=== PATIENT | male | born 1980 | race African-American/Black ===

== ENCOUNTER 2018-05-15 18:34 | Emergency (ER) | payer OTHER ==
--- NOTE | 2018-05-15 18:49 | PDOC ---
Rapid Medical Evaluation Chief Complaint: Revisit, Lab Variance Time Seen by Provider: 05/15/18 18:48 Medical Evaluation: Allergies Allergy/AdvReac Type Severity Reaction Status Date / Time No Known Allergies Allergy Verified 05/15/18 18:47 05/15/18 18:49 I have performed a brief in-person evaluation of this patient The patient presents with a chief complaint of: I want to get treated for trichomonas because my girlfriend has it. I have ordered the following Flagyl 2g PO and GC/CT The patient will proceed to the ED for further evaluation 05/15/18 18:51 Discharge Disposition - Diagnosis STD exposure - Referrals - Patient Instructions - Post Discharge Activity
[2018-05-15] MEDS ORDERED: metroNIDAZOLE 250 MG TABLET PO ONE (18:50)
[2018-05-15 18:51] VITALS: BP 154/105; PULSE 84; TEMP 98.7; BMI 32.4
[2018-05-15] MEDS ORDERED: AZITHROMYCIN 500 MG TABLET PO ONE (19:07)
[2018-05-15] MEDS ORDERED: metroNIDAZOLE 250 MG TABLET ONE (19:09)
[2018-05-15] MEDS ORDERED: cefTRIAXone SODIUM 1 GM VIAL ONE (19:09)
[2018-05-15] MEDS ORDERED: AZITHROMYCIN 500 MG TABLET ONE (19:09)
--- NOTE | 2018-05-15 19:11 | PDOC ---
History of Present Illness - General Chief Complaint: Revisit, Lab Variance Stated Complaint: FOLLOW UP Time Seen by Provider: 05/15/18 18:48 History Source: Patient Exam Limitations: No Limitations - History of Present Illness Initial Comments: Patient is a 37-year-old male who states that his girlfriend was notified that she was recently diagnosed with Trichomonas. Patient has a history of sexual transmitted diseases. He denies dysuria or penile discharge. Pain is 0-10. Denies aggravating or relieving factors. 05/15/18 19:07 Past History - Travel Traveled outside of the country in the last 30 days: No Close contact w/someone who was outside of country & ill: No - Past Medical History Allergies/Adverse Reactions: Allergies Allergy/AdvReac Type Severity Reaction Status Date / Time No Known Allergies Allergy Verified 05/15/18 18:47 COPD: No - Suicide/Smoking/Psychosocial Hx Smoking History: Current every day smoker Number of Cigarettes Smoked Daily: 1 Information on smoking cessation initiated: No Hx Alcohol Use: No Drug/Substance Use Hx: No Review of Systems - Review of Systems Able to Perform ROS?: Yes Constitutional: No: Chills, Fever All Other Systems: Reviewed and Negative *Physical Exam - Vital Signs Last Vital Signs Temp Pulse Resp BP Pulse Ox 98.7 F 84 16 154/105 H 99 05/15/18 18:47 05/15/18 18:47 05/15/18 18:47 05/15/18 18:47 05/15/18 18:47 - Physical Exam Comments: Constitutional: VS stated, pt appears in no apparent distress; sitting in chair. Skin: Warm and dry. Intact, no lesions or excoriations. Head: Normocephalic; atraumatic Eyes: conjunctiva pink without injection or discharge. Throat: Oropharynx with pink and moist mucosa. Lungs: Bilateral breath sounds clear upon auscultation. Heart: Regular rate and rhythm, Abdomen: Soft and non-tender. Musculoskeletal: Moves all extremities without difficulty. Neurologic: Awake, alert. Conversation fluent. Psych: Appropriate affect 05/15/18 19:09 Moderate Sedation - Procedure Monitoring Vital Signs: Procedure Monitoring Vital Signs Temperature 98.7 F 05/15/18 18:47 Pulse Rate 84 05/15/18 18:47 Respiratory Rate 16 05/15/18 18:47 Blood Pressure 154/105 H 05/15/18 18:47 O2 Sat by Pulse Oximetry (%) 99 05/15/18 18:47 Medical Decision Making - Medical Decision Making Pt was given Flagyl 2000 mg PO, Rocephin 250 mg IM and Azithromycin 1000 mg PO. He had no signs of anaphylaxis or allergic reaction. 05/15/18 19:10 *DC/Admit/Observation/Transfer Diagnosis at time of Disposition: STD exposure - Discharge Dispostion Disposition: HOME Condition at time of disposition: Good Decision to Admit order: No - Referrals - Patient Instructions Printed Discharge Instructions: How to Detect and Treat STDs - Post Discharge Activity
[2018-05-15 19:57] LABS: URINE APPEARANCE CLEAR; URINE BILIRUBIN NEGATIVE (<2.0 mg/dL); URINE COLOR STRAW; URINE GLUCOSE (UA) NEGATIVE (NEGATIVE); URINE KETONE NEGATIVE (NEGATIVE); URINE LEUK ESTERASE NEGATIVE (NEGATIVE); URINE NITRITE NEGATIVE (NEGATIVE); URINE PROTEIN NEGATIVE (NEGATIVE); URINE UROBILINOGEN NEGATIVE mg/dL (0.2-1.0)
[2018-05-15 20:08] LABS: EPI CELLS RARE /HPF (FEW); URINE MUCUS RARE
== END 2018-05-15 19:33 | disposition home or self-care (01) ==
LOC: JERFT 18:34
DX: Z20.2 Contact with and (suspected) exposure to infections with a predominantly sexual mode of transmission (principal)
CPT/HCPCS: 36415; 81003; 81015; 87086; 87491; 87591; 96372; 99281-25

== ENCOUNTER 2019-02-22 19:27 | Emergency (ER) | payer SELFPAY ==
[2019-02-22 19:52] VITALS: TEMP 98.9; BMI 29.0
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
[2019-02-22] MEDS ORDERED: ONDANSETRON 4 MG/2 ML VIAL IVPUSH ONE (20:43)
[2019-02-22] MEDS ORDERED: ONDANSETRON 4 MG/2 ML VIAL ONE (20:52)
[2019-02-22 20:53] LABS: BASO % 0.8 % (0-2.0); EOS % 0.7 % (0-4.5); HEMATOCRIT 39.9 % (35.4-49); LYMPH % 36.3 % (8-40); MCH 27.5 pg (25.7-33.7); MCHC 32.5 g/dl (32.0-35.9); MEAN CELL VOLUME 84.7 fl (80-96); MEAN PLT VOLUME 7.3 fl (7.5-11.1); MONO % 7.5 % (3.8-10.2); NEUT % 54.7 % (42.8-82.8); PLATELET COUNT 321 K/MM3 (134-434); RBC 4.71 M/mm3 (4.00-5.60); RDW 13.8 % (11.9-15.9); WHITE BLOOD COUNT 5.7 K/mm3 (4.0-10.0)
[2019-02-22 21:19] LABS: ALBUMIN 4.1 g/dl (3.4-5.0); BILIRUBIN,TOTAL 0.2 mg/dL (0.2-1); BLOOD UREA NITROGEN 15.2 mg/dL (7-18); CREATININE 1.3 mg/dL (0.55-1.3); POTASSIUM 4.2 mmol/L (3.5-5.1); TOT PROT 7.9 g/dl (6.4-8.2)
[2019-02-23] MEDS ORDERED: IBUPROFEN 400 MG TABLET (FP) PO ONE (00:04)
--- NOTE | 2019-02-23 00:04 | PDOC ---
*Physical Exam - Vital Signs Last Vital Signs Temp Pulse Resp BP Pulse Ox 98.9 F 96 H 18 163/100 96 02/22/19 19:47 02/22/19 19:47 02/22/19 19:47 02/22/19 19:47 02/22/19 19:47 ED Treatment Course - LABORATORY CBC & Chemistry Diagram: 02/22/19 20:40 02/22/19 20:40 - ADDITIONAL ORDERS Additional order review: Laboratory Results 02/22/19 02/22/19 20:40 20:40 Sodium 140 Potassium 4.2 Chloride 105 Carbon Dioxide 26 Anion Gap 9 BUN 15.2 Creatinine 1.3 Est GFR (CKD-EPI)AfAm 80.22 Est GFR (CKD-EPI)NonAf 69.22 Random Glucose 101 Calcium 9.0 Total Bilirubin 0.2 AST 15 ALT 28 Alkaline Phosphatase 78 Total Protein 7.9 Albumin 4.1 Lipase 94 02/22/19 20:40 RBC 4.71 MCV 84.7 MCHC 32.5 RDW 13.8 MPV 7.3 L Neutrophils % 54.7 Lymphocytes % 36.3 Monocytes % 7.5 Eosinophils % 0.7 Basophils % 0.8 - Medications Given in the ED: ED Medications Discontinued Medications Generic Name Dose Route Start Last Admin Trade Name Freq PRN Reason Stop Dose Admin Ondansetron HCl 4 mg 02/22/19 20:43 02/22/19 20:50 Zofran Injection IVPUSH 02/22/19 20:44 4 mg ONCE ONE Administration Medical Decision Making - Medical Decision Making 02/23/19 00:03 CT abdomen and pelvis: Moderate sized umbilical and small ventral supraumbilical inflamed fat containing hernias with inflammation extending to the subjacent peritoneum. 02/23/19 01:47 Feels better with Motrin. Ok to follow up with surgery outpatient. *DC/Admit/Observation/Transfer Diagnosis at time of Disposition: Abdominal pain - Discharge Dispostion Disposition: HOME Condition at time of disposition: Improved Decision to Admit order: No - Referrals Referrals: [facility] [Provider Group] Jose Vaca MD [Staff Physician] - Wesley Ling MD [Staff Physician] - Que Robles MD [Staff Physician] - - Patient Instructions Printed Discharge Instructions: DI for Ventral Hernia Additional Instructions: Follow up with the surgery provider listed within the week. Come back to the emergency department for any new, worsening or concerning symptom. - Post Discharge Activity
[2019-02-23] MEDS ORDERED: IBUPROFEN 600 MG TABLET (FP) PO ONE (00:33)
[2019-02-23 01:52] VITALS: BP 136/81; PULSE 80
== END 2019-02-23 01:57 | disposition home or self-care (01) ==
LOC: JER 19:27
PROC: 3E033GC Introduction of Other Therapeutic Substance into Peripheral Vein, Percutaneous Approach (ICD-10-PCS; principal; 2019-02-22)
DX: K42.9 Umbilical hernia without obstruction or gangrene (principal); K43.9 Ventral hernia without obstruction or gangrene
CPT/HCPCS: 36415; 74177-TC; 80053; 83690; 85025; 96374; 99283-25